=== PATIENT | male | born 1965 | race Caucasian/White ===

== ENCOUNTER 2016-12-22 18:35 | Emergency (ER) | payer MEDICAID ==
--- NOTE | 2016-12-22 18:50 | EDPHY ---
H & P Smoking Status: Heavy smoker Time Seen by Provider: 12/22/16 18:36 HPI/ROS: [id number] patient signed out to me from Dr. Rivera pending mental health evaluation. (Sheng Isaac) HPI Suicidal thoughts. 51-year-old male by ambulance from the [facility] on an M1 hold. Patient has a history of depression and suicidal ideation as well as alcohol and substance abuse. Reports states that patient tried to jump in front of a car 3 days ago and was pulled back by a bystander. He then reportedly drank a bottle of vodka and took 10 Klonopin tablets and was passed out on the side of the road where he was found by police. He was taken to the [facility]. He then sobered at the [facility] and explained that he attempted overdose at this time. He told the [facility] staff that he was suicidal and requested come to the emergency department for behavioral health evaluation. He has a [facility] client. He denies any other complaint at this time. He states that he is still suicidal. ROS: Constitutional: No fever, no chills. No weakness. Eyes: No discharge. No changes in vision. ENT: No sore throat. No nasal congestion or rhinorrhea. Respiratory: No cough. No shortness of breath. Cardiac: No chest pain, no palpitations. Gastrointestinal: No abdominal pain, no vomiting, no diarrhea. Genitourinary: No hematuria. No dysuria or increased frequency with urination. Musculoskeletal: No back pain. No neck pain. No myalgias or arthralgias. Skin: No rashes. Neurological: No headache. No focal weakness or altered sensation. Past medical history: Alcohol abuse. Polysubstance abuse. Depression. Suicidal ideation. Homeless. Social history: Homeless. Smoker. As above. Here by himself. Physical Exam: General Appearance: Alert, no distress. Disheveled. This patient is responding to questions appropriately and in full sentences. This patient appears well-hydrated and well-nourished. Eyes: Pupils equal and round no pallor or injection. No lid edema, erythema or injection. Respiratory: There are no retractions, lungs are clear to auscultation with good air movement bilaterally. Cardiovascular: Regular rate and rhythm. No murmur. Gastrointestinal: Abdomen is soft and nontender, no masses, bowel sounds normal. No focal tenderness at McBurney's point. No Tariq sign. Neurological: Motor sensory function is grossly intact. Cranial nerves are normal. Gait is normal. Skin: Warm and dry, no rashes. Musculoskeletal: Neck is supple and nontender. Extremities are symmetrical. All joints range without pain or impingement. Psychiatric: No agitation. Flat affect. Database: EKG: Imaging: Procedures: Emergency department course: 6:50 p.m., patient medically cleared for behavioral health evaluation. Appropriate blood work sent to lab. 12:00 a.m., there have been no issues with this patient during my shift. He still awaits behavioral health evaluation. Care was turned over to Dr. Sheng Isaac. Differential Diagnosis: The differential diagnosis on this patient includes but is not limited to situational depression, major depression, suicidal ideation. Assault, significant traumatic injury unlikely. This represents a partial list of diagnoses considered. These considerations are based on history, physical exam , past history, reassessment and diagnostic testing. (Trino Rivera) Constitutional: Initial Vital Signs Temperature (C) 36.4 C 12/22/16 18:35 Heart Rate 70 12/22/16 18:35 Respiratory Rate 20 12/22/16 18:35 Blood Pressure 146/100 H 12/22/16 18:35 O2 Sat (%) 94 12/22/16 18:35 O2 Delivery Mode Room Air Allergies/Adverse Reactions: No Known Allergies Allergy (Verified 12/22/16 18:45) Home Medications: Medication Instructions Recorded Gabapentin 12/22/16 Pristiq 12/22/16 Risperdal 12/22/16 Vistaril 12/22/16 Cephalexin [Keflex] 500 mg PO TID #21 cap 12/23/16 Sulfamethox/Tmp 800/160 mg 1 tab PO BID #14 tab 12/23/16 [Bactrim Ds] Medical Decision Making Other Provider: 7:00 a.m. [facility] Yohannes Isaac. The patient has a history of homelessness and depression and [facility] He states that he stepped in from the car which is a similar story to previous admissions. He has been evaluated and is on a hold and we are awaiting placement. He is medically cleared. 11:00 a.m. the patient's nurse notified me that he has a small blister on the palm of his right hand with some lymphangitis streaking. I evaluated it . It does appear to have a small pustule. I unroof the blister and will start him on antibiotics. 2:00 p.m. the patient has been accepted at the [facility] crisis [facility] By Dr. Valencia. We will transfer him there. (Van Da Silva) - Data Points Laboratory Results: Laboratory Results 12/22/16 18:49 12/22/16 18:49 Medications Given: Discontinued Medications Cephalexin HCl (Keflex) 500 mg PO EDNOW ONE PRN Reason: Protocol Stop: 12/23/16 11:21 Last Admin: 12/23/16 11:44 Dose: 500 mg Nicotine (Nicoderm Cq) 14 mg TD EDNOW ONE Stop: 12/23/16 00:15 Last Admin: 12/23/16 03:05 Dose: 14 mg Trimethoprim/Sulfamethoxazole (Bactrim Ds) 1 ea PO EDNOW ONE PRN Reason: Protocol Stop: 12/23/16 11:21 Last Admin: 12/23/16 11:44 Dose: 1 ea Departure - Departure Disposition: Other Psych, Not [place] Clinical Impression: Suicidal ideation, Abscess Depression Qualifiers: Depression Type: unspecified Qualified Code(s): F32.9 - Major depressive disorder, single episode, unspecified Condition: Fair Instructions: Abscess (ED) Referrals: Patient,NotPresent [Unknown] - As per Instructions Prescriptions: Cephalexin [Keflex] 500 mg PO TID #21 cap Sulfamethox/Tmp 800/160 mg [Bactrim Ds] 1 tab PO BID #14 tab
[2016-12-22 19:06] LABS: % IMMATURE GRANULYOCYTES 0.2 % (0.0-1.1); ABSOLUTE IMMATURE GRANULOCYTES 0.02 10^3/uL (0.00-0.10); ADD DIFF? NO; ADD MORPH? NO; ADD SCAN? NO; ATYPICAL LYMPHOCYTE FLAG 50 (0-99); FRAGMENT RBC FLAG 0 (0-99); HEMATOCRIT 42.9 % (40.0-51.0); HEMOGLOBIN 15.1 g/dL (13.7-17.5); LEFT SHIFT FLG 0 (0-99); LIPEMIA HEMOLYSIS FLAG 90 (0-99); MEAN CELL HEMOGLOBIN 33.8 pg (27.9-34.1); MEAN CELL HEMOGLOBIN CONCENTR. 35.2 g/dL (32.4-36.7); MEAN PLATELET VOLUME 8.6 fL (8.7-11.7); PLATELET CLUMPS FLAG 0 (0-99); PLATELET COUNT 237 10^3/uL (150-400); RED BLOOD CELL COUNT 4.47 10^6/uL (4.40-6.38); RED CELL DISTRIBUTION WIDTH 14.4 % (11.5-15.2)
[2016-12-22 19:29] LABS: ANION GAP 9 mEq/L (8-16); CALCIUM 8.8 mg/dL (8.5-10.4); CARBON DIOXIDE 24 mEq/l (22-31); CHLORIDE 102 mEq/L (97-110); CREATININE 0.6 mg/dL (0.7-1.3); ETHANOL SERUM < 10 mg/dL (0-10); GLOMERULAR FILTRATION RATE > 60; GLUCOSE 95 mg/dL (70-100); POTASSIUM 4.1 mEq/L (3.5-5.2); SODIUM 135 mEq/L (134-144)
[2016-12-23] MEDS ORDERED: NICOTINE 14 MG/24 HR PATCH TD ONE (00:14)
[2016-12-23] MEDS ORDERED: SULFAMETHOX/TMP 800/160 MG 1 TAB PO ONE (11:20)
[2016-12-23] MEDS ORDERED: CEPHALEXIN 500 MG CAP PO ONE (11:20)
[2016-12-23 15:29] VITALS: BP 131/78; PULSE 88; RESP 14; TEMP 98.4; O2SAT 96
== END 2016-12-23 15:27 ==
LOC: EDUNIT#
DX: T42.4X2A Poisoning by benzodiazepines, intentional self-harm, initial encounter (principal); F32.9 Major depressive disorder, single episode, unspecified; L02.91 Cutaneous abscess, unspecified; F17.200 Nicotine dependence, unspecified, uncomplicated
CPT/HCPCS: 80305; G0480

== ENCOUNTER 2016-12-25 00:45 | Emergency (ER) | payer MEDICAID ==
[~2016-12-25 00:45] MED LIST: CEPHALEXIN 500 MG CAP PO SCH
[2016-12-25 00:52] VITALS: BP 116/86; PULSE 78; RESP 16; TEMP 98.2; O2SAT 96
[2016-12-25] MEDS ORDERED: CEPHALEXIN 500 MG CAP PO ONE (00:58)
[2016-12-25] MEDS: CEPHALEXIN 500MG PREPACK#4 BTL TAKEHOME ONE ×2 (01:02→01:34)
--- NOTE | 2016-12-25 01:04 | EDPHY ---
H & P Stated Complaint: infection on arm, wants ABX Time Seen by Provider: 12/25/16 00:58 HPI/ROS: HPI The patient presents with left arm redness surrounding a wound that he has near his wrist, he is asking for Keflex for this. The patient was seen in the ER recently and was given prescriptions for Keflex and Bactrim for cellulitis of the opposite (right) arm which she took several doses of with improvement of his symptoms. However he did not finish the course and now his left arm has become slightly erythematous, warm, tender to touch. There is no drainage. There is no fever or chills.. REVIEW OF SYSTEMS Musculoskeletal: No back pain. Skin: See HPI Neurological: No headache. PMHx: Psychiatric disease Soc Hx: Homeless, alcohol abuse PHYSICAL General Appearance: Alert, no distress Eyes: Pupils equal and round no pallor or injection ENT, Mouth: Mucous membranes moist Respiratory: There are no retractions, lungs are clear to auscultation Cardiovascular: Regular rate and rhythm Neurological: A&O, moves all extremities Skin: Warm and dry, left wrist with 3 x 3 cm wound with granulation tissue, slight surrounding erythema and warmth without leana tenderness or induration Musculoskeletal: Neck is supple non tender Extremities: symmetrical, full range of motion Psychiatric: Patient is oriented X 3, there is no agitation Source: Patient, EMS Exam Limitations: No limitations - Personal History Current Tetanus/Diphtheria Vaccine: Yes Current Tetanus Diphtheria and Acellular Pertussis (TDAP): Yes Tetanus Vaccine Date: < 10 years - Medical/Surgical History Hx Asthma: No Hx Chronic Respiratory Disease: Yes Hx Diabetes: No Hx Cardiac Disease: No Hx Renal Disease: No Hx Cirrhosis: No Hx Alcoholism: Yes Hx HIV/AIDS: No Hx Splenectomy or Spleen Trauma: No Other PMH: Depression, psychosis, schizoaffective, ETOH abuse, COPD, arthritis - Social History Smoking Status: Heavy smoker Constitutional: Initial Vital Signs Temperature (C) 36.8 C 12/25/16 00:49 Heart Rate 78 12/25/16 00:49 Respiratory Rate 16 12/25/16 00:49 Blood Pressure 116/86 H 12/25/16 00:49 O2 Sat (%) 96 12/25/16 00:49 O2 Delivery Mode Room Air Allergies/Adverse Reactions: No Known Allergies Allergy (Verified 12/22/16 18:45) Home Medications: Medication Instructions Recorded Gabapentin 12/22/16 Pristiq 12/22/16 Risperdal 12/22/16 Vistaril 12/22/16 Cephalexin [Keflex] 500 mg PO TID #21 cap 12/23/16 Sulfamethox/Tmp 800/160 mg 1 tab PO BID #14 tab 12/23/16 [Bactrim Ds] Cephalexin [Keflex (*)] 500 mg PO TID #21 cap 12/25/16 Medical Decision Making Differential Diagnosis: This is a 51-year-old man brought in by ambulance with past medical history of alcohol abuse and homelessness, also recent diagnosis of right-sided upper extremity cellulitis who now presents with concern for left-sided cellulitis. He does have a large wound on his left wrist and could have a bacterial super infection. I doubt any abscess given no area of fluctuance, I doubt septic joint given full range of motion of the wrist. I will give him a course of Keflex and I have advised him to return to the emergency room if he is worse in any way. We will be able to discharge him with a prescription bottle with medications in it. - Data Points Medications Given: Discontinued Medications Cephalexin (Keflex 500 Mg Prepack#4) 1 btl TAKEHOME EDNOW ONE PRN Reason: Protocol Stop: 12/25/16 00:59 Last Admin: 12/25/16 01:34 Dose: Not Given Cephalexin HCl (Keflex) 500 mg PO EDNOW ONE PRN Reason: Protocol Stop: 12/25/16 00:59 Last Admin: 12/25/16 01:02 Dose: 500 mg Departure - Departure Disposition: Home, Routine, Self-Care Clinical Impression: Left arm cellulitis Condition: Good Instructions: Cephalexin (By mouth), Cellulitis (ED) Additional Instructions: Please return to the emergency room if your worse in any way. Referrals: [facility] [Outside] - As per Instructions Prescriptions: Cephalexin [Keflex (*)] 500 mg PO TID #21 cap
== END 2016-12-25 01:36 | disposition home or self-care (01) ==
LOC: EDUNIT#
DX: L03.114 Cellulitis of left upper limb (principal); F17.200 Nicotine dependence, unspecified, uncomplicated; J44.9 Chronic obstructive pulmonary disease, unspecified

== ENCOUNTER 2017-01-05 14:55 | Emergency (ER) | payer MEDICAID ==
[2017-01-05] MEDS ORDERED: NS 1,000 ML IV ONE (15:02)
--- NOTE | 2017-01-05 15:04 | EDPHY ---
H & P HPI/ROS: HPI CHIEF COMPLAINT: "I need IV Fluids" HISTORY OF PRESENT ILLNESS: This patient is a very pleasant 51-year-old male homeless, and daily alcohol use, presents to the emergency room by EMS after call 911 from the library stating that he feels dehydrated needs IV fluids. Patient tells me his last drink was around 8 o'clock this morning of alcohol. Patient states also 2 days ago he fell landing on his left shoulder however he does not have any left shoulder pain. I offered an x-ray of his left shoulder is decline. Past Medical History: COPD, alcohol use, depression, schizoaffective, alcohol abuse Past Surgical History: No significant surgical history Social History: Denies daily use of illicit drugs but does admit to marijuana, alcohol, daily tobacco use daily alcohol use Family History: Noncontributory ROS REVIEW OF SYSTEMS: A comprehensive 10 point review of systems is otherwise negative aside from elements mentioned in the history of present illness. Exam Constitutional unkempt, disheveled, intoxicated with alcohol, smells of alcohol, slurring speech, triage nursing summary reviewed, vital signs reviewed , awake/alert. Eyes normal conjunctivae and sclera, EOMI, PERRLA. HENT normal inspection, atraumatic, moist mucus membranes, no epistaxis, neck supple/ no meningismus, no raccoon eyes. Respiratory clear to auscultation bilaterally, normal breath sounds, no respiratory distress, no wheezing. Cardiovascular rate normal, regular rhythm, no murmur, no edema, distal pulses normal. Gastrointestinal soft, non-tender, no rebound, no guarding, normal bowel sounds, no distension, no pulsatile mass. Genitourinary no CVA tenderness. Musculoskeletal no midline vertebral tenderness, full range of motion, no calf swelling, no tenderness of extremities, no meningismus, good pulses, neurovascularly intact. Skin pink, warm, & dry, no rash, skin atraumatic. Neurologic slurring speech, intoxicated alcohol, awake, alert and oriented x 3 , AAOx3, moves all 4 extremities equally, motor intact, sensory intact, CN II- XII intact, normal cerebellar, normal vision, normal speech. Psychiatric normal mood/affect. Heme/Lymph/Immune no lymphadenopathy. Differential Diagnosis: Includes but is not limited to in a particular order, acute dehydration, electrolyte abnormality, alcohol intoxication. Medical Decision Making: Patient declined any imaging of his left shoulder he is agreeable for IV fluids and blood draw. Here in the emergency room he appears acutely intoxicated alcohol smelling of alcohol and slight slur to her speech. Re-evaluation: 162: Re-examination at this time patient is resting comfortably he is requesting be discharged. He is requesting a sandwich and hot coffee. He has no acute medical complaints at this time. He would like to be discharged. Source: Patient, EMS - Personal History Tetanus Vaccine Date: < 10 years - Medical/Surgical History Hx Asthma: No Hx Chronic Respiratory Disease: Yes Hx Diabetes: No Hx Cardiac Disease: No Hx Renal Disease: No Hx Cirrhosis: No Hx Alcoholism: Yes Hx HIV/AIDS: No Hx Splenectomy or Spleen Trauma: No Other PMH: Depression, psychosis, schizoaffective, ETOH abuse, COPD, arthritis - Social History Smoking Status: Heavy smoker Constitutional: Initial Vital Signs Temperature (C) 36.6 C 01/05/17 15:09 Heart Rate 73 01/05/17 15:09 Respiratory Rate 18 01/05/17 15:09 Blood Pressure 101/64 01/05/17 15:09 O2 Sat (%) 95 01/05/17 15:09 O2 Delivery Mode Room Air Allergies/Adverse Reactions: No Known Allergies Allergy (Verified 12/22/16 18:45) Home Medications: Medication Instructions Recorded Gabapentin 12/22/16 Pristiq 12/22/16 Risperdal 12/22/16 Vistaril 12/22/16 Cephalexin [Keflex] 500 mg PO TID #21 cap 12/23/16 Sulfamethox/Tmp 800/160 mg 1 tab PO BID #14 tab 12/23/16 [Bactrim Ds] Cephalexin [Keflex (*)] 500 mg PO TID #21 cap 12/25/16 Medical Decision Making - Data Points Laboratory Results: Laboratory Results 01/05/17 15:13 01/05/17 15:13 01/05/17 01/05/17 15:13 15:13 WBC 6.09 10^3/uL 10^3/uL (3.80-9.50) RBC 4.53 10^6/uL 10^6/uL (4.40-6.38) Hgb 15.6 g/dL g/dL (13.7-17.5) Hct 44.8 % % (40.0-51.0) MCV 98.9 fL fL (81.5-99.8) MCH 34.4 pg H pg (27.9-34.1) MCHC 34.8 g/dL g/dL (32.4-36.7) RDW 15.2 % % (11.5-15.2) Plt Count 232 10^3/uL 10^3/uL (150-400) MPV 8.7 fL fL (8.7-11.7) Neut % (Auto) 56.1 % % (39.3-74.2) Lymph % (Auto) 31.0 % % (15.0-45.0) [place] % (Auto) 10.0 % % (4.5-13.0) Eos % (Auto) 2.0 % % (0.6-7.6) Baso % (Auto) 0.7 % % (0.3-1.7) Nucleat RBC Rel Count 0.0 % % (0.0-0.2) Absolute Neuts (auto) 3.42 10^3/uL 10^3/uL (1.70-6.50) Absolute Lymphs (auto) 1.89 10^3/uL 10^3/uL (1.00-3.00) Absolute Monos (auto) 0.61 10^3/uL 10^3/uL (0.30-0.80) Absolute Eos (auto) 0.12 10^3/uL 10^3/uL (0.03-0.40) Absolute Basos (auto) 0.04 10^3/uL 10^3/uL (0.02-0.10) Absolute Nucleated RBC 0.00 10^3/uL 10^3/uL (0-0.01) Immature Gran % 0.2 % % (0.0-1.1) Immature Gran # 0.01 10^3/uL 10^3/uL (0.00-0.10) Sodium 143 mEq/L mEq/L (134-144) Potassium 4.2 mEq/L mEq/L (3.5-5.2) Chloride 109 mEq/L mEq/L (97-110) Carbon Dioxide 24 mEq/l mEq/l (22-31) Anion Gap 10 mEq/L mEq/L (8-16) BUN 9 mg/dL mg/dL (7-23) Creatinine 0.7 mg/dL mg/dL (0.7-1.3) Estimated GFR > 60 Glucose 83 mg/dL mg/dL (70-100) Calcium 8.8 mg/dL mg/dL (8.5-10.4) Total Bilirubin 0.7 mg/dL mg/dL (0.1-1.4) Conjugated Bilirubin 0.4 mg/dL mg/dL (0.0-0.5) Unconjugated Bilirubin 0.3 mg/dL mg/dL (0.0-1.1) AST 42 IU/L IU/L (17-59) ALT 43 IU/L IU/L (21-72) Alkaline Phosphatase 59 IU/L IU/L (38-126) Total Protein 7.1 g/dL g/dL (6.3-8.2) Albumin 4.0 g/dL g/dL (3.5-5.0) Lipase 34.0 IU/L IU/L (23-300) Ethyl Alcohol 195 mg/dL H mg/dL (0-10) Medications Given: Discontinued Medications Sodium Chloride (Ns) 1,000 mls @ 0 mls/hr IV ONCE ONE PRN Reason: Wide Open Stop: 01/05/17 15:03 Last Admin: 01/05/17 15:16 Dose: 1,000 mls Departure - Departure Disposition: Home, Routine, Self-Care Clinical Impression: Alcohol intoxication Qualifiers: Complication of substance-induced condition: uncomplicated Qualified Code(s): F10.120 - Alcohol abuse with intoxication, uncomplicated Condition: Good Instructions: Alcohol Intoxication (ED) Referrals: Patient,NotPresent [Unknown] - As per Instructions
[2017-01-05 15:12] VITALS: PULSE 73; RESP 18
[2017-01-05 15:26] LABS: % IMMATURE GRANULYOCYTES 0.2 % (0.0-1.1); ABSOLUTE IMMATURE GRANULOCYTES 0.01 10^3/uL (0.00-0.10); ADD DIFF? NO; ADD MORPH? NO; ADD SCAN? NO; ATYPICAL LYMPHOCYTE FLAG 20 (0-99); FRAGMENT RBC FLAG 0 (0-99); HEMATOCRIT 44.8 % (40.0-51.0); HEMOGLOBIN 15.6 g/dL (13.7-17.5); LEFT SHIFT FLG 0 (0-99); LIPEMIA HEMOLYSIS FLAG 90 (0-99); MEAN CELL HEMOGLOBIN 34.4 pg (27.9-34.1); MEAN CELL HEMOGLOBIN CONCENTR. 34.8 g/dL (32.4-36.7); MEAN CELL VOLUME 98.9 fL (81.5-99.8); MEAN PLATELET VOLUME 8.7 fL (8.7-11.7); PLATELET CLUMPS FLAG 0 (0-99); PLATELET COUNT 232 10^3/uL (150-400); RED BLOOD CELL COUNT 4.53 10^6/uL (4.40-6.38); RED CELL DISTRIBUTION WIDTH 15.2 % (11.5-15.2)
[2017-01-05 15:42] LABS: ALANINE AMINOTRANSFERASE 43 IU/L (21-72); ALKALINE PHOSPHATASE 59 IU/L (38-126); ANION GAP 10 mEq/L (8-16); ASPARTATE AMINOTRANSFERASE 42 IU/L (17-59); BILIRUBIN,TOTAL 0.7 mg/dL (0.1-1.4); BILIRUBIN-CONJUGATED 0.4 mg/dL (0.0-0.5); BILIRUBIN-UNCONJUGATED 0.3 mg/dL (0.0-1.1); CALCIUM 8.8 mg/dL (8.5-10.4); CARBON DIOXIDE 24 mEq/l (22-31); CHLORIDE 109 mEq/L (97-110); CREATININE 0.7 mg/dL (0.7-1.3); ETHANOL SERUM 195 mg/dL (0-10); GLOMERULAR FILTRATION RATE > 60; GLUCOSE 83 mg/dL (70-100); POTASSIUM 4.2 mEq/L (3.5-5.2); SODIUM 143 mEq/L (134-144); TOTAL PROTEIN 7.1 g/dL (6.3-8.2)
[2017-01-05 16:57] VITALS: BP 120/89; TEMP 97; O2SAT 96
== END 2017-01-05 16:59 | disposition home or self-care (01) ==
LOC: EDUNIT#
DX: F10.120 Alcohol abuse with intoxication, uncomplicated (principal); F17.200 Nicotine dependence, unspecified, uncomplicated; J44.9 Chronic obstructive pulmonary disease, unspecified
CPT/HCPCS: G0480

== ENCOUNTER 2017-01-18 03:30 | Emergency (ER) | payer MEDICAID ==
[2017-01-18 03:35] VITALS: TEMP 97.5
[2017-01-18] MEDS ORDERED: LORazepam 1 MG TAB PO ONE (04:15)
[2017-01-18 07:37] LABS: % IMMATURE GRANULYOCYTES 0.2 % (0.0-1.1); ABSOLUTE IMMATURE GRANULOCYTES 0.02 10^3/uL (0.00-0.10); ADD DIFF? NO; ADD MORPH? NO; ADD SCAN? NO; ATYPICAL LYMPHOCYTE FLAG 10 (0-99); FRAGMENT RBC FLAG 0 (0-99); HEMATOCRIT 46.2 % (40.0-51.0); HEMOGLOBIN 16.2 g/dL (13.7-17.5); LEFT SHIFT FLG 0 (0-99); LIPEMIA HEMOLYSIS FLAG 90 (0-99); MEAN CELL HEMOGLOBIN 33.6 pg (27.9-34.1); MEAN CELL HEMOGLOBIN CONCENTR. 35.1 g/dL (32.4-36.7); MEAN CELL VOLUME 95.9 fL (81.5-99.8); MEAN PLATELET VOLUME 8.7 fL (8.7-11.7); PLATELET CLUMPS FLAG 0 (0-99); PLATELET COUNT 257 10^3/uL (150-400); RED BLOOD CELL COUNT 4.82 10^6/uL (4.40-6.38); RED CELL DISTRIBUTION WIDTH 14.6 % (11.5-15.2)
[2017-01-18 07:56] LABS: ANION GAP 10 mEq/L (8-16); CALCIUM 9.2 mg/dL (8.5-10.4); CARBON DIOXIDE 23 mEq/l (22-31); CHLORIDE 105 mEq/L (97-110); CREATININE 0.6 mg/dL (0.7-1.3); GLOMERULAR FILTRATION RATE > 60; GLUCOSE 92 mg/dL (70-100); POTASSIUM 4.3 mEq/L (3.5-5.2); SODIUM 138 mEq/L (134-144)
--- NOTE | 2017-01-18 08:52 | EDPHY ---
H & P Stated Complaint: FEELING DEPRESSED AND HAVING DIFFICULTY BREATHING Time Seen by Provider: 01/18/17 03:58 HPI/ROS: HPI The patient presents with feelings of suicidality for the last several months, I have had enough and . He says he is here because he is trying to save his life and . He is not sure what made his depression worse but he says he is feeling generally down. He has a plan to overdose on alcohol and benzodiazepines or step in front of bus.. He said he did this about 3 weeks ago as well an effort and his life, but [facility] and was [facility] from there. He says he has been drinking about a half a pt of alcohol a day with his last drink being this afternoon. He also reports marijuana use. He says he has been camping lately. He says he takes Pristiq for his depression, however dropped his prescription in the grass this morning and does not have it any more. He says he is followed at [facility] and was just there today. Apparently his legal support manager is receiving a check for his trust fund money that he is owed. He says he is concerned because he is not excited about this large sum of money he is about to receive. He is vague about his shortness of breath but says that it started tonight he thinks and thinks it could be related to his 1 pack per day smoking history. REVIEW OF SYSTEMS Constitutional: No fever, no chills. Eyes: No discharge. ENT: No sore throat. Cardiovascular: No chest pain, no palpitations. Respiratory: No cough, + shortness of breath. Gastrointestinal: No abdominal pain, no vomiting. Genitourinary: No hematuria. Musculoskeletal: No back pain. Skin: No rashes. Neurological: No headache. PMHx: Depression, multiple ER visits Soc Hx: Homeless, alcohol use, tobacco use PHYSICAL General Appearance: Alert, no distress Eyes: Pupils equal and round no pallor or injection ENT, Mouth: Mucous membranes moist Respiratory: There are no retractions, lungs are clear to auscultation Cardiovascular: Regular rate and rhythm Gastrointestinal: Abdomen is soft and non-tender, no masses, bowel sounds normal Neurological: A&O, moves all extremities Skin: Warm and dry, no rashes Musculoskeletal: Neck is supple non tender Extremities: symmetrical, full range of motion Psychiatric: Patient is oriented X 3, there is no agitation Source: Patient Exam Limitations: No limitations - Personal History Current Tetanus/Diphtheria Vaccine: Yes Current Tetanus Diphtheria and Acellular Pertussis (TDAP): Yes Tetanus Vaccine Date: < 10 years - Medical/Surgical History Hx Asthma: No Hx Chronic Respiratory Disease: Yes Hx Diabetes: No Hx Cardiac Disease: No Hx Renal Disease: No Hx Cirrhosis: No Hx Alcoholism: Yes Hx HIV/AIDS: No Hx Splenectomy or Spleen Trauma: No Other PMH: Depression, psychosis, schizoaffective, ETOH abuse, COPD, arthritis - Social History Smoking Status: Heavy smoker Constitutional: Initial Vital Signs Temperature (C) 36.4 C 01/18/17 03:33 Heart Rate 87 01/18/17 03:33 Respiratory Rate 18 01/18/17 03:33 Blood Pressure 146/82 H 01/18/17 03:33 O2 Sat (%) 94 01/18/17 03:33 O2 Delivery Mode Room Air Allergies/Adverse Reactions: No Known Allergies Allergy (Verified 01/18/17 03:35) Home Medications: Medication Instructions Recorded Gabapentin 12/22/16 Pristiq 12/22/16 Risperdal 12/22/16 Vistaril 12/22/16 Medical Decision Making Differential Diagnosis: This is a 51-year-old man with alcohol use, homelessness, apparent depression, well known to this emergency room with multiple visits who self presents says that he is feeling suicidal with a plan. He is not on his psychiatric medication he says after losing it this morning. He has been drinking alcohol and generally feels depressed. Differential diagnosis includes polysubstance abuse, malingering, acute depression with suicidal ideation. In the emergency room, the patient was given 1 mg of Ativan for possible alcohol withdrawal and to allow him to rest. I reassessed him on several occasions and he continued to feel suicidal he said. This morning, he will be given breakfast, we will draw basic labs, and I have asked that mental health evaluate him. I have not put him on a psychiatric hold as he is not at risk of leaving, wants to be evaluated, and I am not sure if he is truly suicidal verses seeking secondary gain. At 7:30 a.m., case is signed out to the oncoming provider Dr. Triplett, pending psychiatric evaluation. - Data Points Laboratory Results: Laboratory Results 01/18/17 07:31 01/18/17 07:31 01/18/17 01/18/17 07:31 07:31 WBC 9.14 10^3/uL 10^3/uL (3.80-9.50) RBC 4.82 10^6/uL 10^6/uL (4.40-6.38) Hgb 16.2 g/dL g/dL (13.7-17.5) Hct 46.2 % % (40.0-51.0) MCV 95.9 fL fL (81.5-99.8) MCH 33.6 pg pg (27.9-34.1) MCHC 35.1 g/dL g/dL (32.4-36.7) RDW 14.6 % % (11.5-15.2) Plt Count 257 10^3/uL 10^3/uL (150-400) MPV 8.7 fL fL (8.7-11.7) Neut % (Auto) 70.7 % % (39.3-74.2) Lymph % (Auto) 20.9 % % (15.0-45.0) [place] % (Auto) 7.4 % % (4.5-13.0) Eos % (Auto) 0.3 % L % (0.6-7.6) Baso % (Auto) 0.5 % % (0.3-1.7) Nucleat RBC Rel Count 0.0 % % (0.0-0.2) Absolute Neuts (auto) 6.45 10^3/uL 10^3/uL (1.70-6.50) Absolute Lymphs (auto) 1.91 10^3/uL 10^3/uL (1.00-3.00) Absolute Monos (auto) 0.68 10^3/uL 10^3/uL (0.30-0.80) Absolute Eos (auto) 0.03 10^3/uL 10^3/uL (0.03-0.40) Absolute Basos (auto) 0.05 10^3/uL 10^3/uL (0.02-0.10) Absolute Nucleated RBC 0.00 10^3/uL 10^3/uL (0-0.01) Immature Gran % 0.2 % % (0.0-1.1) Immature Gran # 0.02 10^3/uL 10^3/uL (0.00-0.10) Sodium 138 mEq/L mEq/L (134-144) Potassium 4.3 mEq/L mEq/L (3.5-5.2) Chloride 105 mEq/L mEq/L (97-110) Carbon Dioxide 23 mEq/l mEq/l (22-31) Anion Gap 10 mEq/L mEq/L (8-16) BUN 15 mg/dL mg/dL (7-23) Creatinine 0.6 mg/dL L mg/dL (0.7-1.3) Estimated GFR > 60 Glucose 92 mg/dL mg/dL (70-100) Calcium 9.2 mg/dL mg/dL (8.5-10.4) Medications Given: Discontinued Medications Lorazepam (Ativan) 1 mg PO EDNOW ONE Stop: 01/18/17 04:16 Last Admin: 01/18/17 04:17 Dose: 1 mg Departure - Departure Disposition: Home, Routine, Self-Care Clinical Impression: Depression Qualifiers: Depression Type: unspecified Qualified Code(s): F32.9 - Major depressive disorder, single episode, unspecified Condition: Good Instructions: Depression (ED) Referrals: Charlotte Reina MD [Primary Care Provider] - As per Instructions
[2017-01-18 13:35] VITALS: BP 127/97; PULSE 104; RESP 18; O2SAT 93
== END 2017-01-18 13:34 | disposition home or self-care (01) ==
LOC: EEVIPCON 03:30
DX: F32.9 Major depressive disorder, single episode, unspecified (principal); J44.9 Chronic obstructive pulmonary disease, unspecified; F17.200 Nicotine dependence, unspecified, uncomplicated
CPT/HCPCS: 80305

== ENCOUNTER 2017-07-16 20:45 | Emergency (ER) | payer MEDICAID ==
[~2017-07-16 20:45] MED LIST changes: +SULFAMETHOX/TMP 800/160 MG 1 TAB PO SCH
[2017-07-16 20:54] VITALS: TEMP 97.7
[2017-07-16] MEDS ORDERED: CEPHALEXIN 500 MG CAP PO ONE (21:34)
[2017-07-16] MEDS ORDERED: SULFAMETHOX/TMP 800/160 MG 1 TAB PO ONE (21:34)
--- NOTE | 2017-07-16 21:37 | EDPHY ---
H & P Time Seen by Provider: 07/16/17 21:14 HPI/ROS: HPI Infection in pubic hair. 51-year-old male, well known to our emergency department, on foot, complains of a rash and possible infection involving his pubic hair region just above his pubic bone in the midline. He states that he noticed about 3 days ago. Describes it as itching with some crusting and redness. No fever. ROS: Constitutional: No fever, no chills. No weakness. Respiratory: No cough. No shortness of breath. Cardiac: No chest pain, no palpitations. Gastrointestinal: No abdominal pain, no vomiting, no diarrhea. Musculoskeletal: No back pain. No neck pain. No myalgias or arthralgias. Skin: As above. Neurological: No headache. No focal weakness or altered sensation. Past medical history: Depression, psychosis, schizoaffective disorder, COPD, alcohol abuse, arthritis. Social history: Homeless. Smoker. As above. Physical Exam: General Appearance: Alert, no distress. This patient is responding to questions appropriately and in full sentences. This patient appears well- hydrated and well-nourished. Eyes: Pupils equal and round no pallor or injection. No lid edema, erythema or injection. Gastrointestinal: Abdomen is soft and nontender, no masses, bowel sounds normal. No focal tenderness at McBurney's point. No Tariq sign. Neurological: Motor sensory function is grossly intact. Cranial nerves are normal. Gait is normal. Skin: Warm and dry, he has got a mildly erythematous area of skin is midline pubic hair region just above his pubic bone. There is some archibald, whitish crusting over some areas of this erythema. There is no crepitus, no drainage, no palpable abscess or fluctuance. No associated edema. The area of erythema is about the diameter of a tennis ball. Musculoskeletal: Neck is supple and nontender. Extremities are symmetrical. All joints range without pain or impingement. Psychiatric: No agitation. No depression. Database: EKG: Imaging: Procedures: Emergency department course: Vital signs reviewed. He is afebrile. Vital signs otherwise normal. He was started on Bactrim and Keflex in the emergency department. I will provide him with a 7 day course of each of these medications through our assistance program. This was completed by the nursing staff. I discussed follow-up with [facility] or Tuesday of this week at their walk-in clinic on [facility]. He endorses this plan. Return to emergency department precautions discussed with him. All of his questions were answered. He was discharged in good condition. Differential Diagnosis: The differential diagnosis on this patient includes but is not limited to folliculitis, cellulitis. Abscess, necrotizing fasciitis unlikely. This represents a partial list of diagnoses considered. These considerations are based on history, physical exam, past history, reassessment and diagnostic testing. Smoking Status: Heavy smoker Constitutional: Initial Vital Signs Temperature (C) 36.5 C 07/16/17 20:51 Heart Rate 71 07/16/17 20:51 Respiratory Rate 20 07/16/17 20:51 Blood Pressure 115/80 07/16/17 20:51 O2 Sat (%) 88 L 07/16/17 20:51 O2 Delivery Mode Room Air Allergies/Adverse Reactions: No Known Allergies Allergy (Verified 01/18/17 03:35) Home Medications: Medication Instructions Recorded Gabapentin 12/22/16 Pristiq 12/22/16 Risperdal 12/22/16 Vistaril 12/22/16 Cephalexin [Keflex (*)] 500 mg PO Q6 7 Days cap 07/16/17 Sulfamethox/Tmp 800/160 mg 1 tab PO BID@1000,2200 #14 tab 07/16/17 [Bactrim Ds] Departure - Departure Disposition: Home, Routine, Self-Care Clinical Impression: Rash, Folliculitis Condition: Good Instructions: Folliculitis (ED) Additional Instructions: Read and follow provided instructions. Follow-up with your primary care physician at [facility] on Tuesday at their walk-in clinic and on [facility] for re-evaluation. Take medication as prescribed. Bactrim DS antibiotic: 1 pill twice daily, once in the morning and once in the evening for 7 days. Keflex antibiotic: 1 pill every 6 hours or 4 times daily for 7 days. Return to the emergency department for worsening symptoms, fever, pain or other serious concerns. Referrals: [facility],. [Clinic] - As per Instructions Prescriptions: Cephalexin [Keflex (*)] 500 mg PO Q6 7 Days cap Sulfamethox/Tmp 800/160 mg [Bactrim Ds] 1 tab PO BID@1000,2200 #14 tab
[2017-07-16 22:00] VITALS: BP 118/73; PULSE 79; RESP 16; O2SAT 96
== END 2017-07-16 22:00 | disposition home or self-care (01) ==
DX: L73.9 Follicular disorder, unspecified (principal); J44.9 Chronic obstructive pulmonary disease, unspecified; F17.200 Nicotine dependence, unspecified, uncomplicated

== ENCOUNTER 2018-05-19 14:09 | Emergency (ER) | payer MEDICAID, OTHER ==
--- NOTE | 2018-05-19 14:13 | EDPHY ---
HPI/HX/ROS/PE/MDM Narrative: CHIEF COMPLAINT: M1, homicidal ideation HPI: The patient is a 52 y/o male arriving via EMS from [facility] on an M1 hold for homicidal ideation. Per M1 paperwork, the patient is "reporting homicidal ideation with a plan to kill someone who offered him drugs. He reports having an axe in his backpack." Staff there also believes he has been drinking alcohol. Per EMS, PD confiscated the patient's axe prior to transport. He has been cooperative and tearful for EMS. En route he complained of suicidality to EMS as well and says he has been trying to overdose on benzodiazepines and alcohol. He reports taking 3 pills of a benzodiazepine today. He states he is not on any medication for psychiatric disorders. REVIEW OF SYSTEMS: Aside from elements discussed in the HPI, a comprehensive 10-point review of systems was reviewed and is negative. PMH: COPD, schizoaffective disorder, alcohol and polysubstance abuse. SOCIAL HISTORY: Homeless, smoker, alcohol and benzodiazepine abuse. Prior medical records reviewed including ED visit 07/16/17. PHYSICAL EXAM: General:Patient is alert, in no acute distress, disheveled, tearful, smells of alcohol. ENT:Eyes are normal to inspection. ENT inspection normal. Neck: Normal inspection. Full range of motion. Respiratory:No respiratory distress. Breath sounds normal bilaterally. Cardiovascular: Regular rate and rhythm. Strong peripheral pulses. Normal cap refill. Abdomen:The abdomen is nontender to palpation. There are no peritoneal signs. Back: Normal to inspection. No tenderness to palpation. Skin: Normal color. No rash. Warm and dry. Extremities: Normal appearance. Full range of motion. Neuro: Oriented x3. Normal motor function. Normal sensory function. (Broderick Triplett) ED Course: Plan for standard psychiatric clearance labs and mental health evaluation. ( Broderick Triplett) I took over care of this patient at 3:00 p.m.. This patient is on an M1 hold. The patient is awaiting medical clearance for EPS evaluation. Blood work pending. He has a history of schizoaffective disorder. He is here for suicidal and homicidal thoughts. 3:40 p.m., serum alcohol 209. Patient to be evaluated by EPS when appropriately sober. 8:40 p.m., the patient has been seen and evaluated by [facility]. He is not suicidal or homicidal. Dr. Blacnhard the on-call psychiatrist feels the patient can be discharged. He does not meet criteria for admission at this time. I have vacated the patient's M1 hold. Follow-up has been arranged through [facility]. Return to emergency department precautions discussed with the patient. All of his questions were answered. He was discharged in good condition. (Trino Rivera) - Data Points Laboratory Results: Laboratory Results 05/19/18 14:00 05/19/18 14:00 05/19/18 05/19/18 05/19/18 15:55 14:00 14:00 WBC 7.55 10^3/uL 10^3/uL (3.80-9.50) RBC 5.04 10^6/uL 10^6/uL (4.40-6.38) Hgb 16.1 g/dL g/dL (13.7-17.5) Hct 46.7 % % (40.0-51.0) MCV 92.7 fL fL (81.5-99.8) MCH 31.9 pg pg (27.9-34.1) MCHC 34.5 g/dL g/dL (32.4-36.7) RDW 19.0 % H % (11.5-15.2) Plt Count 246 10^3/uL 10^3/uL (150-400) MPV 9.7 fL fL (8.7-11.7) Neut % (Auto) 62.7 % % (39.3-74.2) Lymph % (Auto) 29.1 % % (15.0-45.0) Merrick % (Auto) 6.6 % % (4.5-13.0) Eos % (Auto) 0.8 % % (0.6-7.6) Baso % (Auto) 0.5 % % (0.3-1.7) Nucleat RBC Rel Count 0.0 % % (0.0-0.2) Absolute Neuts (auto) 4.73 10^3/uL 10^3/uL (1.70-6.50) Absolute Lymphs (auto) 2.20 10^3/uL 10^3/uL (1.00-3.00) Absolute Monos (auto) 0.50 10^3/uL 10^3/uL (0.30-0.80) Absolute Eos (auto) 0.06 10^3/uL 10^3/uL (0.03-0.40) Absolute Basos (auto) 0.04 10^3/uL 10^3/uL (0.02-0.10) Absolute Nucleated RBC 0.00 10^3/uL 10^3/uL (0-0.01) Immature Gran % 0.3 % % (0.0-1.1) Immature Gran # 0.02 10^3/uL 10^3/uL (0.00-0.10) Sodium 138 mEq/L mEq/L (135-145) Potassium 5.2 mEq/L H mEq/L (3.3-5.0) Chloride 104 mEq/L mEq/L (97-110) Carbon Dioxide 21 mEq/l L mEq/l (22-31) Anion Gap 13 mEq/L mEq/L (8-16) BUN 5 mg/dL L mg/dL (7-23) Creatinine 0.6 mg/dL L mg/dL (0.7-1.3) Estimated GFR > 60 Glucose 83 mg/dL mg/dL (70-100) Calcium 9.0 mg/dL mg/dL (8.5-10.4) Urine Opiates Screen NEGATIVE (NEGATIVE) Urine Barbiturates NEGATIVE (NEGATIVE) Ur Phencyclidine Scrn NEGATIVE (NEGATIVE) Ur Amphetamine Screen NEGATIVE (NEGATIVE) U Benzodiazepines Scrn NON-NEGATIVE H (NEGATIVE) Urine Cocaine Screen NEGATIVE (NEGATIVE) U Marijuana (THC) Screen NON-NEGATIVE H (NEGATIVE) Ethyl Alcohol 209 mg/dL H mg/dL (0-10) Medications Given: Discontinued Medications Lorazepam (Ativan) 1 mg PO EDNOW ONE Stop: 05/19/18 18:42 Last Admin: 05/19/18 18:45 Dose: 1 mg Nicotine (Nicoderm Cq) 21 mg TD EDNOW ONE Stop: 05/19/18 16:07 Last Admin: 05/19/18 16:36 Dose: 21 mg General Time Seen by Provider: 05/19/18 14:09 Initial Vital Signs: Initial Vital Signs Temperature (C) 36.7 C 05/19/18 14:09 Heart Rate 96 07/13/18 14:09 Respiratory Rate 16 05/19/18 14:09 Blood Pressure 148/103 H 05/19/18 14:09 O2 Sat (%) 95 05/19/18 14:09 O2 Delivery Mode Room Air Allergies/Adverse Reactions: No Known Allergies Allergy (Verified 01/18/17 03:35) Home Medications: Medication Instructions Recorded Gabapentin 12/22/16 Risperdal 12/22/16 Departure - Departure Disposition: Home, Routine, Self-Care Clinical Impression: Alcohol abuse, Situational depression Condition: Good Instructions: Abuse of Alcohol (ED), Depression (ED) Additional Instructions: Read and follow provided instructions. Follow-up with [facility] this coming week as discussed with your provider for re-evaluation. Do not drink alcohol or take drugs. Return to the emergency department for worsening symptoms, suicidal thoughts or other serious concerns. Referrals: [facility] [Outside] - As per Instructions Report Scribed for: Broderick Triplett Report Scribed by: Michelle Montoya Date of Report: 05/19/18 Time of Report: 14:29 Physician Review and Approval Statement: Portions of this note were transcribed by an ED scribe. I personally performed the history, physical exam, and medical decision making; and confirm the accuracy of the information in the transcribed note.
[2018-05-19 14:28] LABS: PLATELET COUNT 246 10^3/uL (150-400)
[2018-05-19] MEDS ORDERED: NICOTINE 21 MG/24 HR PATCH TD ONE (16:06)
[2018-05-19] MEDS ORDERED: LORazepam 1 MG TAB PO ONE ×2 (18:41→20:43)
[2018-05-19 21:01] VITALS: BP 147/98
== END 2018-05-19 21:01 | disposition home or self-care (01) ==
LOC: EDUNIT#
DX: F43.21 Adjustment disorder with depressed mood (principal); F10.129 Alcohol abuse with intoxication, unspecified; J44.9 Chronic obstructive pulmonary disease, unspecified; F17.200 Nicotine dependence, unspecified, uncomplicated
CPT/HCPCS: 80305; G0480